=== PATIENT | female | born 1945 | race Caucasian/White ===

== ENCOUNTER 2020-12-05 17:17 | Emergency (ER) | payer OTHER ==
[~2020-12-05] VITALS: Ht 160 cm; Wt 50.8 kg
[2020-12-05 17:33] VITALS: BP 144/72
--- NOTE | 2020-12-05 17:43 | NUR ---
ring cut from finger.
== END 2020-12-05 17:56 | disposition home or self-care (01) ==
LOC: ER 17:40
DX: S60.454A Superficial foreign body of right ring finger, initial encounter (principal); X58.XXXA Exposure to other specified factors, initial encounter; Y93.89 Activity, other specified; Y92.89 Other specified places as the place of occurrence of the external cause; Y99.8 Other external cause status